=== PATIENT | female | born 1950 | race Asian ===

== ENCOUNTER 2017-03-04 10:56 | Inpatient (IN) | payer BC ==
[~2017-03-04] VITALS: Ht 157.5 cm; Wt 81.6 kg
[2017-03-04 10:56] VITALS: BP 141/79; PULSE 92; RESP 20; TEMP 97.9; O2SAT 97
[2017-03-04] MEDS ORDERED: NACL 0.9% 1,000 ML IV ONE (11:09)
--- NOTE | 2017-03-04 11:20 | NUR ---
Placed in room 5 . Placed on director of cardiac rehabilitation, blood pressure machine and pulse oximeter. To gown for exam. Side rails up.
--- NOTE | 2017-03-04 11:24 | NUR ---
ER at bedside examining patient.
--- NOTE | 2017-03-04 11:24 | NUR ---
# 20 gauge angiocath placed to LAC. Use of asceptic technique. Opsite placed over site. Blood return noted. Blood for lab drawn from site. Flushed with 10 cc of normal saline. No evidence of infiltration noted. Patient tolerated well.
--- NOTE | 2017-03-04 11:26 | NUR ---
Pt brought in by her daughter, sent by PMD for abnormal lab,high calcium level. Pt is AAOX4,no distress,feel weak, skin warm dry intact.will continue monitor.
[2017-03-04] MEDS ORDERED: ALEN10TA21 PO (11:43)
[2017-03-04] MEDS ORDERED: LOSA50TA20 PO (11:43)
[2017-03-04] MEDS ORDERED: CIPR500S3 PO (11:43)
[2017-03-04] MEDS ORDERED: ALLO100T PO (11:43)
--- NOTE | 2017-03-04 11:43 | NUR ---
Medication reconciliation completed with information provided by patient. Any prior medication reconciliation on file was reviewed and corrected.
[2017-03-04 11:51] LABS: BASOPHILS % (AUTO) 0.4 % (0.0-2.0); EOSINOPHILS # (AUTO) 0.1 K/uL (0.0-0.4); EOSINOPHILS % (AUTO) 2.1 % (0.0-4.0); HEMATOCRIT 40.7 % (36-48); HEMOGLOBIN 13.4 g/dL (12.0-16.0); LYMPHOCYTES # (AUTO) 1.8 K/uL (1.0-5.5); LYMPHOCYTES % (AUTO) 26.2 % (20.5-51.5); MEAN CORPUSCULAR HEMOGLOBIN 29 pg (27-31); MEAN CORPUSCULAR HGB CONC 33 % (32-36); MEAN CORPUSCULAR VOLUME 88 fL (79.0-98.0); MONOCYTES # (AUTO) 0.3 K/uL (0.0-1.0); NEUTROPHILS # (AUTO) 4.8 K/uL (1.8-7.7); NEUTROPHILS % (AUTO) 66.3 % (40.0-70.0); PLATELET COUNT (AUTO) 317 K/uL (130-430); RED BLOOD CELL COUNT(AUTO) 4.63 MIL/uL (4.2-6.2)
[2017-03-04 11:52] LABS: CREATININE 1.37 mg/dL (0.55-1.30); POTASSIUM 3.9 mmol/L (3.5-5.1)
[2017-03-04 12:02] LABS: INR 0.9 (0.8-1.2); PROTHROMBIN TIME 10.3 SECS (9.5-12.5)
[2017-03-04 12:09] LABS: ALBUMIN 3.5 g/dL (3.4-4.8); FREE T4 (FREE THYROXINE) 0.9 ng/dL (0.6-1.6); THYROID STIMULATING HORMONE 2.17 uIu/mL (0.34-4.82); TOTAL BILIRUBIN 0.6 mg/dL (0.0-1.0); TOTAL PROTEIN, SERUM 8.2 g/dL (6.4-8.3)
[2017-03-04 12:10] LABS: CALCIUM 14.4 mg/dL (8.4-11.0)
[2017-03-04] MEDS: 0.45% NACL 1,000 ML IV SCH ×2 (12:30→20:30)
[2017-03-04] MEDS ORDERED: FUROSEMIDE 40 MG/4 ML VIAL IVP ONE (12:30)
[2017-03-04] MEDS ORDERED: FUROSEMIDE 40 MG/4 ML VIAL ONE (12:41)
--- NOTE | 2017-03-04 12:45 | NUR ---
Lasix 40 mg IVP to LAC per stat order of Dr. Edmond.
--- NOTE | 2017-03-04 12:54 | NUR ---
Patient will be admitted to care of Admitted to MS unit. Will go to room 135. Belongings list completed. Summary report printed. Report will be given at bedside.
--- NOTE | 2017-03-04 13:05 | NUR ---
ADMIT NOTE Received pt from ER to the floor with a diagnosis of SEVERE HYPERCALCEMIA. Admission process initiated. patient oriented to pain management, safety and call light-teach back done.
[2017-03-04] MEDS ORDERED: MAGNESIUM SULFATE 50 ML IV PRN (13:30)
[2017-03-04] MEDS ORDERED: LORazepam 2 MG/ML VIAL IVP PRN (13:30)
[2017-03-04] MEDS ORDERED: MORPHINE 2 MG/ML INJ. SYRINGE IVP PRN (13:30)
[2017-03-04] MEDS ORDERED: ACETAMINOPHEN 325 MG TABLET PO PRN (13:30)
[2017-03-04] MEDS ORDERED: ONDANSETRON HCL 4 MG/2 ML VIAL IVP PRN (13:30)
[2017-03-04] MEDS ORDERED: ZOLPIDEM TARTRATE 5 MG TABLET PO PRN (13:30)
[2017-03-04] MEDS ORDERED: DOCUSATE SODIUM 100 MG CAPSULE PO PRN (13:30)
--- NOTE | 2017-03-04 14:00 | NUR ---
PATIENT ASSESSED. REPORTS DIFFICULTY W BOWEL MOVEMENTS X 3 WEEKS, STATES STOOL SOFTENERS SOMETIMES HELP. PATIENT REPORTS A WEIGHT LOSS OVER THE LAST TREE WEEKS DUE TO POOR APPETITE AND LEFT LOWER ABDOMINAL PAIN. PATIENT STATES HER RIGHT EAR HURTS SHE OFTEN COLLECTS WAX THERE AND THEN GETS AN EAR INFECTION. MD IS AWARE OF THESE SYMPTOMS PER THE PATIENT.
--- NOTE | 2017-03-04 15:11 | NUR ---
PATIENT PLACED ON INTERACTIVE MEDIA DESIGNER. STATES SHE STILL IS URINATING QUITE A BIT FROM LASIX GIVEN IN ER
--- NOTE | 2017-03-04 15:51 | NUR ---
REPORT GIVEN TO ALONSO LOZADA PT IS NOW TELEMETRY PATIENT
--- NOTE | 2017-03-04 15:58 | NUR ---
ABLE TO KEEP PATIENT ANOTHER PT IS DISCHARGED AND I WILL NOT BE OVER RATIO. ASSUMED CARE BACK FROM ALONSO LOZADA
--- NOTE | 2017-03-04 17:49 | NUR ---
PATIENT HAS AMBULATED TO RESTROOM WITH ASSIST SEVERAL TIMES. STEADY GAIT.
[2017-03-04 18:04] VITALS: BP 132/87; PULSE 76; RESP 18; TEMP 98; O2SAT 99
[2017-03-04] MEDS ORDERED: COMMUNICATION ORDER XX ONE (18:15)
--- NOTE | 2017-03-04 18:28 | NUR ---
DAUGHTER AT BEDSIDE. ADDITIONAL ELECTRONICS AND BELONGINGS DOCUMENTED ON FRESH BELONGINGS LIST. PATIENT IS STABLE, NO SIGNS OF DISTRESS. ADD'L CA LABS DRAWN
[2017-03-04 19:00] VITALS: BP 127/74; PULSE 84; RESP 16; TEMP 96.4; O2SAT 96
[2017-03-04 20:00] VITALS: BP 127/74; PULSE 84; RESP 18; TEMP 96.4; O2SAT 96
[2017-03-04] MEDS: HEPARIN SODIUM,PORCINE 5000 UNITS/ML VIAL SUBCUT SCH (20:51)
[2017-03-05] VITALS (7 sets, daily range): BP systolic 114–136; BP diastolic 60–76; PULSE 75–98; RESP 16–18; TEMP 96.1–98.4; O2SAT 95–100; Ht 157.5 cm; Wt 81.6 kg
[2017-03-05] MEDS: 0.45% NACL 1,000 ML IV SCH ×3 (04:20→23:04)
[2017-03-05 07:43] LABS: BASOPHILS % (AUTO) 0.5 % (0.0-2.0); EOSINOPHILS # (AUTO) 0.1 K/uL (0.0-0.4); EOSINOPHILS % (AUTO) 2.1 % (0.0-4.0); HEMATOCRIT 40.1 % (36-48); LYMPHOCYTES # (AUTO) 1.6 K/uL (1.0-5.5); LYMPHOCYTES % (AUTO) 26.9 % (20.5-51.5); MEAN CORPUSCULAR HEMOGLOBIN 28 pg (27-31); MEAN CORPUSCULAR HGB CONC 32 % (32-36); MEAN CORPUSCULAR VOLUME 87 fL (79.0-98.0); MONOCYTES # (AUTO) 0.4 K/uL (0.0-1.0); MONOCYTES % (AUTO) 6.4 % (1.7-9.3); NEUTROPHILS % (AUTO) 64.1 % (40.0-70.0); PLATELET COUNT (AUTO) 292 K/uL (130-430); RED BLOOD CELL COUNT(AUTO) 4.61 MIL/uL (4.2-6.2); RED CELL DISTRIBUTION WIDTH 11.8 % (9.0-15.0); WHITE BLOOD COUNT (AUTO) 6.1 K/uL (4.8-10.8)
--- NOTE | 2017-03-05 08:31 | NUR ---
Opening Note Report received form Yaakov GUPTA. Patient is in stable condition and currently sitting up in bed. Iv is on the RFA 22g, saline locked. No complaints at the moment. Dr. Edmond ordered a 24 hour urine collect. Patient instructed not to dispose of any urine. Patient verbalized understanding. Call light is within reach instructed patient on how to use it. Will continue to monitor.
[2017-03-05 08:45] LABS: CREATININE 1.14 mg/dL (0.55-1.30); POTASSIUM 3.8 mmol/L (3.5-5.1); URIC ACID 8.5 mg/dL (2.4-7.0)
[2017-03-05] MEDS: ALENDRONATE SODIUM 5 MG TABLET PO SCH (08:52)
[2017-03-05 08:53] LABS: CALCIUM 13.8 mg/dL (8.4-11.0)
[2017-03-05] MEDS: DOCUSATE SODIUM 100 MG CAPSULE PO SCH ×2 (08:53→21:04)
[2017-03-05] MEDS: HEPARIN SODIUM,PORCINE 5000 UNITS/ML VIAL SUBCUT SCH ×2 (08:54→21:13)
[2017-03-05] MEDS: FUROSEMIDE 40 MG/4 ML VIAL IVP SCH ×2 (08:55→21:05)
[2017-03-05] MEDS ORDERED: FUROSEMIDE 40 MG/4 ML VIAL IVP SCH (09:00)
--- NOTE | 2017-03-05 09:18 | NUR ---
NEPHROLOGY CONSULT CALLED TO DR ROSADO, RE: SEVERE HYPERCALCEMIA. CALLED HIM DIRECTLY
--- NOTE | 2017-03-05 09:18 | NUR ---
NEPHROLOGY CONSULT CALLED TO KRISTIN RODRIGUEZ: SEVERE HYPERCALCEMIA. CALLED HIM DIRECTLY Addendum: 03/05/17 at 0922 by Charmaine Preston MT/ FARRUKH REID
--- NOTE | 2017-03-05 10:30 | NUR ---
Rounds Patient is currently resting in bed. Call light is within reach.
--- NOTE | 2017-03-05 12:33 | NUR ---
Rounds Patient is resting in bed. No signs of distress noted.
--- NOTE | 2017-03-05 14:35 | NUR ---
Rounds Patient is resting in bed. Call light is within reach.
--- NOTE | 2017-03-05 16:35 | NUR ---
Rounds Patient is resting in bed. Call light is within reach.
--- NOTE | 2017-03-05 18:46 | NUR ---
Closing Note Patient is resting in bed. No signs of distress noted. Call light is within reach. Will give report to the oncoming nurse.
--- NOTE | 2017-03-05 19:30 | NUR ---
PM ASSESSMENT PT. A/OX4, VITAL SIGNS STABLE, NO DISTRESS NOTED, DENIES PAIN, UPDATED WITH PLAN OF CARE, ENCOURAGED PT. TO USE CALL LIGHT FOR ASSISTANCE, CALL LIGHT WITHIN REACH, BED IN LOWEST POSITION.
[2017-03-05] MEDS: LOSARTAN POTASSIUM 50 MG TABLET (COZAAR) PO SCH (21:04)
[2017-03-05] MEDS: ALLOPURINOL 100 MG TABLET (ZYLOPRIM) PO SCH (21:04)
--- NOTE | 2017-03-05 21:30 | NUR ---
RN ROUNDS PT. RESTING QUIETLY, VITAL SIGNS STABLE, NO DISTRESS NOTED, DENIES PAIN, CALL LIGHT WITHIN REACH, WILL CONTINUE TO MONITOR.
--- NOTE | 2017-03-05 23:28 | NUR ---
RN ROUNDS PT. SLEEPING, VITAL SIGNS STABLE, NO DISTRESS NOTED, DENIES PAIN. CALL LIGHT WITHIN REACH, BED IN LOWEST POSITION.
--- NOTE | 2017-03-06 01:25 | NUR ---
RN ROUNDS PT. RESTING QUIETLY, VITAL SIGNS STABLE, NO DISTRESS NOTED, DENIES PAIN, CALL LIGHT WITHIN REACH, BED IN LOWEST POSITION.
--- NOTE | 2017-03-06 03:15 | NUR ---
RN ROUNDS ASSISTED PT. TO AMBULATE TO THE BATHROOM, PT. VOIDED 300 CC CLEAR YELLOW URINE, ASSISTED SAFELY BACK INTO BED.
[2017-03-06 04:00] VITALS: BP 117/62; PULSE 80; RESP 18; TEMP 98.2; O2SAT 98
[2017-03-06] MEDS: 0.45% NACL 1,000 ML IV SCH ×3 (04:30→21:13)
--- NOTE | 2017-03-06 05:15 | NUR ---
RN ROUNDS PT. SLEEPING, VITAL SIGNS STABLE, NO DISTRESS NOTED, DENIES PAIN. CALL LIGHT WITHIN REACH, BED IN LOWEST POSITION.
--- NOTE | 2017-03-06 06:39 | NUR ---
CLOSING NOTES PT. RESTING QUIETLY, VITAL SIGNS STABLE, NO DISTRESS NOTED, DENIES PAIN, IV ACCESS PATENT AND BENIGN, ALL ANTICIPATED NEEDS MET, KEPT COMFORTABLE.
[2017-03-06 07:05] LABS: BASOPHILS % (AUTO) 0.3 % (0.0-2.0); EOSINOPHILS # (AUTO) 0.2 K/uL (0.0-0.4); EOSINOPHILS % (AUTO) 1.9 % (0.0-4.0); HEMATOCRIT 41.6 % (36-48); HEMOGLOBIN 13.6 g/dL (12.0-16.0); LYMPHOCYTES # (AUTO) 3.2 K/uL (1.0-5.5); LYMPHOCYTES % (AUTO) 38.3 % (20.5-51.5); MEAN CORPUSCULAR HEMOGLOBIN 29 pg (27-31); MEAN CORPUSCULAR HGB CONC 33 % (32-36); MEAN CORPUSCULAR VOLUME 88 fL (79.0-98.0); MONOCYTES # (AUTO) 0.5 K/uL (0.0-1.0); MONOCYTES % (AUTO) 5.7 % (1.7-9.3); NEUTROPHILS # (AUTO) 4.4 K/uL (1.8-7.7); NEUTROPHILS % (AUTO) 53.8 % (40.0-70.0); PLATELET COUNT (AUTO) 340 K/uL (130-430); RED BLOOD CELL COUNT(AUTO) 4.74 MIL/uL (4.2-6.2); RED CELL DISTRIBUTION WIDTH 12.1 % (9.0-15.0); WHITE BLOOD COUNT (AUTO) 8.3 K/uL (4.8-10.8)
[2017-03-06 07:18] LABS: CREATININE 1.35 mg/dL (0.55-1.30); POTASSIUM 3.3 mmol/L (3.5-5.1)
[2017-03-06 07:26] LABS: CALCIUM 13.5 mg/dL (8.4-11.0)
--- NOTE | 2017-03-06 07:51 | NUR ---
Opening Note Report received from Kellee RN. Patient is in stable condition. No complaints at the present moment. IV 22g is on the RAC and 24g is on the right hand currently infusing 1/2NS@125ml/hr. Still on 24hr urine collection for Ca. Will continue to monitor.
[2017-03-06 08:23] VITALS: BP 107/53; PULSE 84; RESP 18; TEMP 97.7; O2SAT 97
[2017-03-06] MEDS: ALENDRONATE SODIUM 5 MG TABLET PO SCH (08:58)
[2017-03-06] MEDS: DOCUSATE SODIUM 100 MG CAPSULE PO SCH ×2 (08:58→21:15)
[2017-03-06] MEDS: POTASSIUM CHLORIDE 10 MEQ TAB.PRT.SR PO PRN (08:59)
[2017-03-06] MEDS: FUROSEMIDE 40 MG/4 ML VIAL IVP SCH ×2 (08:59→21:16)
[2017-03-06] MEDS: HEPARIN SODIUM,PORCINE 5000 UNITS/ML VIAL SUBCUT SCH ×2 (09:08→21:18)
--- NOTE | 2017-03-06 10:30 | NUR ---
Rounds Patient is resting in bed. No signs of distress noted. Dr. Edmond spoke with the patient a the bedside.
[2017-03-06] MEDS: cefTRIAXone 1 GM in D5W 50 ML IV SCH (11:26)
[2017-03-06 12:27] VITALS: BP 123/58; PULSE 77; RESP 15; TEMP 97.4; O2SAT 95
--- NOTE | 2017-03-06 12:40 | NUR ---
Rounds Patient is currently eating lunch in bed.
--- NOTE | 2017-03-06 14:43 | NUR ---
Rounds Patient is currently resting in bed. Call light is within reach.
[2017-03-06 16:28] LABS: BILIRUBIN,URINE NEGATIVE (NEGATIVE); BLOOD, URINE NEGATIVE (NEGATIVE); CLARITY/URINE CLEAR (CLEAR); COLOR,URINE YELLOW (YELLOW); GLUCOSE,URINE NEGATIVE (NEGATIVE); KETONES,URINE NEGATIVE (NEGATIVE); LEUKOCYTE ESTERASE ,URINE NEGATIVE (NEGATIVE); NITRITE, URINE NEGATIVE (NEGATIVE); PROTEIN URINE NEGATIVE (NEGATIVE); UROBILINOGEN,URINE 0.2 (0.2-1.0)
[2017-03-06 16:30] VITALS: BP 106/57; PULSE 84; RESP 14; TEMP 98.2; O2SAT 97
--- NOTE | 2017-03-06 16:50 | NUR ---
Rounds Patient is currently resting in bed. Call light is within reach.
--- NOTE | 2017-03-06 18:54 | NUR ---
Closing Note Patient is in stable condition. No complaints at the moment. IV 20g is on the LAC running 1/2NS@125 ml/hr. Call light is within reach. Will give report to the oncoming nurse.
--- NOTE | 2017-03-06 19:05 | NUR ---
OPENING NOTES RECEIVED REPORT AT BEDSIDE FROM DAY SHIFT NURSE. PATIENT IS SITTING UP IN BED, WATCHING TELEVISION, IN GOOD SPIRITS. IV IS RUNNING, NO SIGNS OF INFILTRATION. RESPIRATIONS EVEN AND UNLABORED. NO S/S OF ACUTE DISTRESS NOTED. BED IN LOWEST POSITION, CALL LIGHT WITHIN REACH.
--- NOTE | 2017-03-06 21:00 | NUR ---
RN ROUNDS DAUGHTER AT BEDSIDE, NO CHANGE IN CONDITION.
[2017-03-06] MEDS: LOSARTAN POTASSIUM 50 MG TABLET (COZAAR) PO SCH (21:15)
[2017-03-06] MEDS: ALLOPURINOL 100 MG TABLET (ZYLOPRIM) PO SCH (21:18)
--- NOTE | 2017-03-06 23:29 | NUR ---
RN ROUNDS PATIENT SLEEPING SOUNDLY WITH VISIBLE RISE AND FALL OF CHEST NOTED. NO S/S OF DISTRESS. CALL LIGHT WITHIN REACH, BED IN LOWEST POISTION.
[2017-03-07] VITALS (7 sets, daily range): BP systolic 96–124; BP diastolic 50–66; PULSE 71–94; RESP 17–19; TEMP 96.1–98.4; O2SAT 95–99
--- NOTE | 2017-03-07 00:13 | NUR ---
RN ROUNDS PATIENT SLEEPING COMFORTABLY, WITH RISE AND FALL OF CHEST NOTED. IV INFUSING. NO ACUTE S/S OF DISTRESS NOTED. WILL CONTINUE TO MONITOR. BED IN LOWEST POSITION, CALL LIGHT WITHIN REACH.
[2017-03-07] MEDS: 0.45% NACL 1,000 ML IV SCH ×2 (04:30→12:30)
--- NOTE | 2017-03-07 06:43 | NUR ---
CLOSING NOTES PATIENT IS SLEEPING COMFORTABLY. IV IS RUNNING, NO SIGNS OF INFILTRATION. RESPIRATIONS EVEN AND UNLABORED. NO S/S OF ACUTE DISTRESS NOTED. BED IN LOWEST POSITION, CALL LIGHT WITHIN REACH. ALL NEEDS MET THROUGHOUT THE SHIFT. WILL ENDORSE CARE TO DAYSHIFT NURSE.
[2017-03-07 06:51] LABS: CREATININE 1.41 mg/dL (0.55-1.30); PHOSPHORUS 3.5 mg/dL (2.7-4.5); POTASSIUM 3.4 mmol/L (3.5-5.1)
[2017-03-07 07:04] LABS: BASOPHILS % (AUTO) 0.4 % (0.0-2.0); EOSINOPHILS # (AUTO) 0.2 K/uL (0.0-0.4); EOSINOPHILS % (AUTO) 3.1 % (0.0-4.0); HEMATOCRIT 36.4 % (36-48); HEMOGLOBIN 12.1 g/dL (12.0-16.0); LYMPHOCYTES # (AUTO) 1.9 K/uL (1.0-5.5); LYMPHOCYTES % (AUTO) 30.6 % (20.5-51.5); MEAN CORPUSCULAR HEMOGLOBIN 29 pg (27-31); MEAN CORPUSCULAR HGB CONC 33 % (32-36); MEAN CORPUSCULAR VOLUME 87 fL (79.0-98.0); MONOCYTES # (AUTO) 0.4 K/uL (0.0-1.0); MONOCYTES % (AUTO) 6.9 % (1.7-9.3); NEUTROPHILS # (AUTO) 3.7 K/uL (1.8-7.7); PLATELET COUNT (AUTO) 281 K/uL (130-430); RED BLOOD CELL COUNT(AUTO) 4.19 MIL/uL (4.2-6.2); RED CELL DISTRIBUTION WIDTH 11.9 % (9.0-15.0); WHITE BLOOD COUNT (AUTO) 6.2 K/uL (4.8-10.8)
[2017-03-07 07:36] LABS: CALCIUM 12.7 mg/dL (8.4-11.0)
--- NOTE | 2017-03-07 08:00 | NUR ---
OPENING NOTE: RECEIVED REPORT FROM NIGHT NURSE. PATIENT IS RESTING COMFORTABLY IN BED. NO S/S OF DISTRESS OR SOB. PATIENT IS ALERT AND ORIENTED, ABLE TO EXPRESS NEEDS, AND ASK FOR ASSISTANCE. VITAL SIGNS WNL, ASSESSMENT COMPLETE. IV IS PATENT AND INFUSING. CALL LIGHT IN REACH, BED IN LOWEST POSITION, AND WILL CONTINUE TO MONITOR.
[2017-03-07] MEDS: POTASSIUM CHLORIDE 10 MEQ TAB.PRT.SR PO PRN (09:11)
[2017-03-07] MEDS: FUROSEMIDE 40 MG/4 ML VIAL IVP SCH (09:11)
[2017-03-07] MEDS: DOCUSATE SODIUM 100 MG CAPSULE PO SCH (09:11)
[2017-03-07] MEDS: ALENDRONATE SODIUM 5 MG TABLET PO SCH (09:11)
[2017-03-07] MEDS: HEPARIN SODIUM,PORCINE 5000 UNITS/ML VIAL SUBCUT SCH (09:12)
--- NOTE | 2017-03-07 10:00 | NUR ---
NOTE: PATIENT IS RESTING COMFORTABLY IN BED. NO S/S OF DISTRESS OR SOB. PATIENT IS ALERT AND ORIENTED, ABLE TO EXPRESS NEEDS, AND ASK FOR ASSISTANCE. CALL LIGHT IN REACH, BED IN LOWEST POSITION, AND WILL CONTINUE TO MONITOR. NO NEEDS EXPRESSED AT THIS TIME.
[2017-03-07] MEDS: cefTRIAXone 1 GM in D5W 50 ML IV SCH (10:28)
--- NOTE | 2017-03-07 12:00 | NUR ---
NOTE: PATIENT IS RESTING COMFORTABLY IN BED. NO S/S OF DISTRESS OR SOB. PATIENT IS ALERT AND ORIENTED, ABLE TO EXPRESS NEEDS, AND ASK FOR ASSISTANCE. CALL LIGHT IN REACH, BED IN LOWEST POSITION, AND WILL CONTINUE TO MONITOR.
--- NOTE | 2017-03-07 14:00 | NUR ---
NOTE: PATIENT IS RESTING COMFORTABLY IN BED. NO S/S OF DISTRESS OR SOB. PATIENT IS ALERT AND ORIENTED, ABLE TO EXPRESS NEEDS, AND ASK FOR ASSISTANCE. NO NEEDS AT THE MOMENT. CALL LIGHT IN REACH, BED IN LOWEST POSITION, AND WILL CONTINUE TO MONITOR.
--- NOTE | 2017-03-07 16:10 | NUR ---
NOTE: PATIENT IS RESTING COMFORTABLY IN BED. NO S/S OF DISTRESS OR SOB. PATIENT IS ALERT AND ORIENTED, ABLE TO EXPRESS NEEDS AND ASK FOR ASSISTANCE. PATIENT STATES THAT DAUGHTER WILL BE PICKING HER UP AFTER WORK TONIGHT. CALL LIGHT IN REACH, BED IN LOWEST POSITION, AND WILL CONTINUE TO MONITOR.
--- NOTE | 2017-03-07 19:30 | NUR ---
CLOSING NOTE: PATIENT IS RESTING COMFORTABLY IN BED. NO S/S OF DISTRESS OR SOB. PATIENT IS ALERT AND ORIENTED, ABLE TO EXPRESS NEEDS, AND ASK FOR ASSISTANCE. DISCHARGE INSTRUCTIONS WERE GIVEN TO PATIENT. IV HAS BEEN REMOVED. DISCHARGE PAPER SIGNED. CALL LIGHT IN REACH, BED IN LOWEST POSITION, AND WILL GIVE REPORT TO NIGHT NURSE.
--- NOTE | 2017-03-07 21:04 | NUR ---
D/C Patient Patient given medication reconciliation form and D/C instructions. Patient verbalized understanding. Ambulatory with steady gait for discharge to home. Patient will be going to the hospital lobby via wheelchair. Patient in stable condition, ID band removed. IV catheter removed, intact and dressing applied, no active bleeding. Rx of given. Patient educated on pain management. All belongings sent with patient. Patient will be going home with Yaneth (patient's daughter).
[2017-03-08 11:26] LABS: PTH RELATED PEPTIDE 7.4 pmol/L (.)
== END 2017-03-07 21:18 | disposition home or self-care (01) | DRG 641 ==
LOC: SED 10:59 → SMU 12:25 → STU 23:30
PROVIDERS: ADMIT General Practice; ATTEND General Practice
DX: E83.52 Hypercalcemia (principal); J98.11 Atelectasis; M10.9 Gout, unspecified; T45.2X5A Adverse effect of vitamins, initial encounter; H66.91 Otitis media, unspecified, right ear; T50.3X5A Adverse effect of electrolytic, caloric and water-balance agents, initial encounter; Y92.89 Other specified places as the place of occurrence of the external cause; Y93.89 Activity, other specified; Y99.8 Other external cause status; Z86.12 Personal history of poliomyelitis; Z79.899 Other long term (current) drug therapy
CPT/HCPCS: 36415; 70450-TC; 71010; 80048; 80053; 81003; 82310-TC; 82340; 83519; 83690-TC; 83735-TC; 83970; 84100-TC; 84439; 84443-TC; 84550-TC; 85025; 85610-TC; 85730-TC; 93005; 96360; 96361; 99285; J0696; J1644; J1940; J3475; J7030; J7060